=== PATIENT | female | born 1970 | race Caucasian/White ===

== ENCOUNTER 2018-10-30 07:28 | Outpatient (CLI) | payer OTHER | END 2018-10-30 07:37 | disposition home or self-care (01) | LOC: LAB 07:28 | DX: D64.0 Hereditary sideroblastic anemia (principal) ==

== ENCOUNTER → 2019-09-23 14:45 | Outpatient (CLI) | payer OTHER ==
[~2019-09-23 14:45] MED LIST: ADVAIR HFA 115/12 GM; CARAFATE1 G; CIPRO500 MG PO; ESGIC-PLUS TABL1 TAB; HYZAAR 50-12.1 UDTAB; PREVACID N1 COMB.PKG; RELAFEN500 MG PO; SINGULAIR10 MG; XOPENEX HFA15 GM
== END | disposition home or self-care (01) ==
LOC: LAB 14:45
DX: D72.1 Eosinophilia (principal)